=== PATIENT | male | born 1985 | race Caucasian/White ===

== ENCOUNTER 2016-05-20 11:22 | Emergency (ER) | payer OTHER ==
[2016-05-20 11:40] VITALS: BP 117/80; PULSE 78; TEMP 98.2; BMI 26.5
--- NOTE | 2016-05-20 11:41 | PDOC ---
History of Present Illness - General Chief Complaint: Injury Stated Complaint: LEFT NECK/SHOULDERPAIN S/P INJURY AT WORK Time Seen by Provider: 05/20/16 11:38 - History of Present Illness Initial Comments: 05/20/16 12:05 Chief complaint: Pain in the left upper back and posterior shoulder History of present illness: This morning the patient was pulling a heavy cart at work, felt a "snap" in his upper back posteriorly and posterior shoulder, with subsequent pain in this area, radiating down the inner aspect of his arm, accompanied by numbness and paresthesias along the C6-C7 distribution. Review of systems: The patient did not fall. He has no visual or other focal neurologic symptoms or unsteadiness of gait. He has no anterior chest pain, shortness of breath, abdominal pain, nausea, vomiting, diarrhea. Remainder systems reviewed and found to be negative Past medical history: Patient denies any serious medical or surgical or orthopedic problems in the past. Social history: Denies any significant use of tobacco alcohol or nonprescription drugs. Fully active and without disability Family history: Reviewed and noncontributory including early coronary artery disease, orthopedic disease, neurologic disease, cancer, or metabolic disease including diabetes Physical exam: Alert and oriented 3, well-developed well-nourished, no acute distress, cooperative Afebrile, vital signs normal Head atraumatic. PERRLA, fundi benign, ENT clear There is tenderness over the left lateral neck musculature, primarily posteriorly. There is no point tenderness or deformity of the vertebral bodies of the cervical spine. There is subjective mild numbness and paresthesias along the C6 and C7 distribution on the left, although there is no demonstrable sensory or motor deficit to the arm. There is no axillary deformity or tenderness. There is no limited range of motion of the arm or shoulder Impression: Cervical strain with radiculopathy versus brachial plexus pain. Rule out cervical spine injury/subluxation Plan: X-rays and further orthopedic management depending on results. Rest, anti- inflammatory, and muscle relaxant. Past History - Past Medical History Allergies/Adverse Reactions: Allergies Allergy/AdvReac Type Severity Reaction Status Date / Time ibuprofen [From Motrin] Allergy Mild Verified 05/20/16 11:28 Home Medications: Ambulatory Orders Cyclobenzaprine HCl [Flexeril] 10 mg PO TID #14 tablet 05/20/16 Oxycodone HCl/Acetaminophen [Percocet 5-325 mg Tablet] 1 - 2 tab PO Q4H PRN #15 tablet MDD 8 05/20/16 Other medical history: pt denies - Surgical History Abdominal Surgery: Yes (double hernia at the age of 14 years.) - Psycho/Social/Smoking Cessation Hx Anxiety: No Suicidal Ideation: No Smoking History: Never smoked Information on smoking cessation initiated: No Hx Alcohol Use: Yes (occasional) Drug/Substance Use Hx: No Substance Use Type: None *Physical Exam - Vital Signs Last Vital Signs Temp Pulse Resp BP Pulse Ox 98.2 F 78 18 117/80 96 05/20/16 11:23 05/20/16 11:23 05/20/16 11:23 05/20/16 11:23 05/20/16 11:23 Medical Decision Making - Medical Decision Making 05/20/16 13:50 X-ray of the cervical spine showed no acute fracture or dislocation. There appeared to be mild straightening due to muscle spasm, and mild degenerative changes The patient's arm was placed in a sling to avoid traction on the nerve bundle. Rest ice Percocet and Flexeril or recommended. Anti-inflammatories were not prescribed due to ALLERGY to ibuprofen which she described as "closing of his throat" The patient was kept out of work, strongly advised to avoid stress on the arm and shoulder, including lifting, carrying, or exercising. It was recommended he follow-up with an marketing analytics specialist for further examination before returning to normal activities. *DC/Admit/Observation/Transfer Diagnosis at time of Disposition: Radiculopathy affecting upper extremity - Discharge Dispostion Disposition: HOME Condition at time of disposition: Stable Admit: No - Prescriptions Prescriptions: Cyclobenzaprine HCl [Flexeril] 10 mg PO TID #14 tablet Oxycodone HCl/Acetaminophen [Percocet 5-325 mg Tablet] 1 - 2 tab PO Q4H PRN #15 tablet MDD 8 PRN Reason: Pain - Referrals Referrals: Amadeo Castaneda MD [Staff Physician] - 3 days - Patient Instructions Printed Discharge Instructions: DI for Cervical Radiculopathy, How to Use a Sling - Post Discharge Activity Work/School Note: Back to Work
== END 2016-05-20 13:02 | disposition home or self-care (01) ==
LOC: FER 11:22
DX: M54.10 Radiculopathy, site unspecified (principal)
CPT/HCPCS: 72050-TC; 99282-25

== ENCOUNTER 2017-12-12 20:50 | Emergency (ER) | payer OTHER ==
--- NOTE | 2017-12-12 20:57 | PDOC ---
History of Present Illness - General History Source: Patient Exam Limitations: No Limitations - History of Present Illness Initial Comments: 12/12/17 21:33 The patient is a 32 year old male, with no significant PMH, who presents to the emergency department complaining of abdomen pain for the past 3 days. The patient states constant non radiating pain is located to the RUQ and epigastric area that has progressively worsened today with a severity of 8/10. He reports he endorses associated symptoms of nausea, decrease appetite, cold sweats and nonbloody and nonbilious diarrhea for the past 2 days. The patient also notes pain is exacerbated with movement. The patient denies any recent travels, chest pain, shortness of breath, headache and dizziness. Denies fever, chills, nausea, vomit and constipation. Denies dysuria, frequency, urgency and hematuria. Allergies: ibuprofen Past surgical history: :Double hernia at the age of 14 years Social history: Drinks alcohol and smoke marijuana. PCP: Becka Champagne <Wan Harper - Last Filed: 12/12/17 21:44> <Berta Sharma - Last Filed: 12/13/17 00:29> - General Chief Complaint: Pain Stated Complaint: ABD PAIN Time Seen by Provider: 12/12/17 20:53 Past History <Wan Harper - Last Filed: 12/12/17 21:44> - Past Medical History COPD: No - Surgical History Abdominal Surgery: Yes (double hernia at the age of 14 years.) - Suicide/Smoking/Psychosocial Hx Smoking History: Never smoked Have you smoked in the past 12 months: No Hx Alcohol Use: No (social) Drug/Substance Use Hx: No Substance Use Type: None <Berta Sharma - Last Filed: 12/13/17 00:29> - Past Medical History Allergies/Adverse Reactions: Allergies Allergy/AdvReac Type Severity Reaction Status Date / Time ibuprofen [From Motrin] Allergy Mild Difficulty Verified 12/12/17 20:52 Breathing Home Medications: Ambulatory Orders Hyoscyamine Odt [Levsin Odt -] 0.125 mg PO BID #12 tab.rapdis 12/12/17 Ondansetron [Zofran Odt -] 4 mg SL TID PRN #12 od.tablet 12/12/17 Pantoprazole Sodium [Protonix -] 40 mg PO DAILY #20 tablet.ec 12/12/17 Review of Systems - Review of Systems Able to Perform ROS?: Yes Comments:: 12/12/17 21:33 GENERAL/CONSTITUTIONAL: No fever or chills. No weakness. HEAD, EYES, EARS, NOSE AND THROAT: No change in vision. No ear pain or discharge. No sore throat. CARDIOVASCULAR: No chest pain or shortness of breath. RESPIRATORY: No cough, wheezing, or hemoptysis. GASTROINTESTINAL:+diffuse abdomen pain, +nausea.No vomiting, diarrhea or constipation. GENITOURINARY: No dysuria, frequency, or change in urination. MUSCULOSKELETAL: No joint or muscle swelling or pain. No neck or back pain. SKIN: No rash NEUROLOGIC: No headache, vertigo, loss of consciousness, or change in strength/ sensation. ENDOCRINE: No increased thirst. No abnormal weight change. HEMATOLOGIC/LYMPHATIC: No anemia, easy bleeding, or history of blood clots. ALLERGIC/IMMUNOLOGIC: No hives or skin allergy. <Wan Harper - Last Filed: 12/12/17 21:44> *Physical Exam - Vital Signs Last Vital Signs Temp Pulse Resp BP Pulse Ox 98.4 F 68 18 148/94 100 12/12/17 20:50 12/12/17 20:50 12/12/17 20:50 12/12/17 20:50 12/12/17 20:50 - Physical Exam Comments: 12/12/17 21:38 GENERAL: Awake, alert, and fully oriented, in no acute distress HEAD: No signs of trauma EYES: PERRLA, EOMI, sclera anicteric, conjunctiva clear ENT: +Dry mucous membrane. Auricles normal inspection, hearing grossly normal, nares patent, oropharynx clear without exudates. NECK: Normal ROM, supple, no lymphadenopathy, JVD, or masses LUNGS: Breath sounds equal, clear to auscultation bilaterally. No wheezes, and no crackles HEART: Regular rate and rhythm, normal S1 and S2, no murmurs, rubs or gallops ABDOMEN: + Moderate epigastric and RLQ tenderness with some involuntary guarding but no rebound. No [place] signs. No masses, hernia , organomegaly. Normal active bowel sounds. EXTREMITIES: Normal range of motion, no edema. No clubbing or cyanosis. No cords, erythema, or tenderness NEUROLOGICAL: Cranial nerves II through XII grossly intact. Normal speech, normal gait SKIN: Warm, Dry, normal turgor, no rashes or lesions noted. <Wan Harper - Last Filed: 12/12/17 21:44> - Vital Signs Last Vital Signs Temp Pulse Resp BP Pulse Ox 98.4 F 68 18 148/94 100 12/12/17 20:50 12/12/17 20:50 12/12/17 20:50 12/12/17 20:50 12/12/17 20:50 <Berta Sharma - Last Filed: 12/13/17 00:29> ED Treatment Course - LABORATORY CBC & Chemistry Diagram: 12/12/17 21:10 12/12/17 21:10 - ADDITIONAL ORDERS Additional order review: Laboratory Results 12/12/17 21:10 Sodium 134 L Potassium 3.6 Chloride 98 Carbon Dioxide 25 Anion Gap 11 BUN 14 Creatinine 1.1 Creat Clearance w eGFR > 60 Random Glucose 108 H Calcium 9.8 Total Bilirubin 0.9 AST 22 ALT 23 Alkaline Phosphatase 40 Total Protein 8.4 H Albumin 5.0 12/12/17 21:10 RBC 4.99 MCV 91.3 MCHC 33.6 RDW 11.5 L MPV 7.6 Neutrophils % 75.9 Lymphocytes % 14.5 Monocytes % 8.7 Eosinophils % 0.8 Basophils % 0.1 - Medications Given in the ED: ED Medications Discontinued Medications Generic Name Dose Route Start Last Admin Trade Name Freq PRN Reason Stop Dose Admin Hydromorphone HCl 1 mg 12/12/17 21:11 12/12/17 21:17 Dilaudid Injection - IVPUSH 12/12/17 21:12 1 mg ONCE ONE Administration <Wan Harper - Last Filed: 12/12/17 21:44> - LABORATORY CBC & Chemistry Diagram: 12/12/17 21:10 12/12/17 21:10 <Berta Sharma - Last Filed: 12/13/17 00:29> Progress Note - Progress Note Progress Note: Documentation has been prepared under my direction and personally reviewed by me in its entirety. I attest that this documented accurately reflects all work, treatment, procedures and medical decision making performed by me. <Berta Sharma - Last Filed: 12/13/17 00:29> Medical Decision Making - Medical Decision Making As noted above, this otherwise healthy 32-year-old male presents with abdominal pain, primarily epigastric/periumbilical/right lower quadrant. He has had associated nausea without vomiting. No fever although he says he has had some chills. He has developed watery diarrhea over the last 24 hours. Patient states that primary pain is in the epigastrium; he has no history of peptic ulcer disease or gastritis and denies recent alcohol use/excessive medications (patient is ALLERGIC to NSAIDs and does not take any medications on a regular basis). Exam as noted Patient received a total of 2 mg Dilaudid IV for his severe abdominal cramping pain, 20 mg Pepcid IV as well as 40 mg Protonix IV. He also received Zofran 4 mg IV for ongoing nausea. Laboratory evaluation (CBC/chemistry profile/lipase) are all essentially normal. Abdominal/pelvic CT performed to evaluate for acute appendicitis/perforated peptic ulcer disease/colitis. CT is essentially normal without evidence of appendicitis/diverticulitis/colitis /free air/pancreatitis. Clinical presentation consistent with gastroenteritis with patient's nausea and diarrhea. However, because patient has significant epigastric pain, there is possibility that he there is developing also peptic ulcer disease or acute gastritis. Patient's family is followed for gastroenterology concerns by . Prescriptions for Protonix 40 mg daily/Levsin ODT 0.125 mg 2 times a day/Zofran ODT 4 mg 3 times a day were given to the patient. Meanwhile, he should maintain light diet and drink plenty of clear liquids as tolerated. He should plan to follow-up with Dr. Powell in the near future: Office should be called at the start of the next business day. If patient has persistent vomiting, worsening pain, fever, he should return to the emergency room <Berta Sharma - Last Filed: 12/13/17 00:29> *DC/Admit/Observation/Transfer - Attestations Scribe Attestion: 12/12/17 21:34 Documentation prepared by Wan Harper, acting as certified medical aide for Berta Sharma MD. <Wan Harper - Last Filed: 12/12/17 21:44> <Berta Sharma - Last Filed: 12/13/17 00:29> Diagnosis at time of Disposition: Epigastric abdominal pain - Discharge Dispostion Disposition: HOME Condition at time of disposition: Stable - Prescriptions Prescriptions: Hyoscyamine Odt [Levsin Odt -] 0.125 mg PO BID #12 tab.rapdis Ondansetron [Zofran Odt -] 4 mg SL TID PRN #12 od.tablet PRN Reason: Nausea Pantoprazole Sodium [Protonix -] 40 mg PO DAILY #20 tablet.ec - Referrals Referrals: Becka Champagne [Primary Care Provider] - Amador Powell MD [Staff Physician] - 3 days - Patient Instructions Printed Discharge Instructions: DI for Epigastric Pain Additional Instructions: Light diet; drink plenty of clear liquids Protonix 40 mg daily Zofran ODT 4 mg up to 3 times a day as needed for nausea Levsin ODT 0.125mg up to twice a day as needed for abdominal cramping Return to ER if you have persistent vomiting, severe pain or fever Follow-up with within the next 3-4 days - Post Discharge Activity
[2017-12-12] MEDS ORDERED: SODIUM CHLORIDE 1,000 ML IV STA (21:10)
[2017-12-12 21:11] VITALS: TEMP 98.4; BMI 27.2
[2017-12-12] MEDS ORDERED: HYDROmorphone HCL CARPU-JECT 1 MG/1 ML DISP.SYRIN IVPUSH ONE ×2 (21:11→22:35)
[2017-12-12] MEDS ORDERED: HYDROmorphone HCL CARPU-JECT 1 MG/1 ML DISP.SYRIN ONE ×2 (21:12→22:36)
[2017-12-12 21:22] LABS: BASO % 0.1 % (0-2.0); EOS % 0.8 % (0-4.5); HEMATOCRIT 45.6 % (35.4-49); HEMOGLOBIN 15.3 GM/dl (11.7-16.9); LYMPH % 14.5 % (8-40); MCH 30.7 pg (25.7-33.7); MCHC 33.6 g/dl (32.0-35.9); MEAN CELL VOLUME 91.3 fl (80-96); MEAN PLT VOLUME 7.6 fl (7.5-11.1); MONO % 8.7 % (3.8-10.2); NEUT % 75.9 % (42.8-82.8); PLATELET COUNT 266 K/MM3 (134-434); RBC 4.99 M/mm3 (4.00-5.60); RDW 11.5 % (11.9-15.9); WHITE BLOOD COUNT 9.6 K/mm3 (4.0-10.8)
[2017-12-12 21:31] LABS: ALK PHOS 40 U/L (32-92); ANION GAP 11 MMOL/L (8-16); BILIRUBIN,TOTAL 0.9 mg/dl (0.2-1.0); BLOOD UREA NITROGEN 14 mg/dl (7-18); CALCIUM 9.8 mg/dl (8.4-10.2); CHLORIDE 98 mmol/L (98-107); CO2 25 mmol/L (22-28); CREATININE 1.1 mg/dl (0.6-1.3); GLUCOSE,RANDOM 108 mg/dl (74-106); POTASSIUM 3.6 mmol/L (3.5-5.1); SGOT/AST 22 U/L (10-42); SGPT/ALT 23 U/L (10-40); SODIUM 134 mmol/L (136-145); TOT PROT 8.4 g/dl (6.4-8.3)
[2017-12-12] MEDS ORDERED: FAMOTIDINE 20 MG/50 ML IVPB 20 MG/50 ML MG IVPB ONE ×2 (21:36→21:43)
[2017-12-12 22:21] LABS: LIPASE 103 U/L (73-393)
[2017-12-12] MEDS ORDERED: PANTOPRAZOLE SODIUM 40 MG VIAL ONE (22:36)
[2017-12-12] MEDS ORDERED: PANTOPRAZOLE SODIUM 40 MG VIAL IVPB ONE (22:36)
[2017-12-12 22:42] VITALS: BP 118/75; PULSE 65
[2017-12-12] MEDS ORDERED: SODIUM CHLORIDE 1,000 ML IV ONE (22:50)
[2017-12-12] MEDS ORDERED: ONDANSETRON 4 MG/2 ML VIAL IVPUSH ONE (23:01)
[2017-12-12] MEDS ORDERED: ONDANSETRON 4 MG/2 ML VIAL ONE (23:01)
== END 2017-12-12 23:55 | disposition home or self-care (01) ==
LOC: FER 20:50
PROC: 3E03329 Introduction of Other Anti-infective into Peripheral Vein, Percutaneous Approach (ICD-10-PCS; principal; 2017-12-12)
PROC: 3E033GC Introduction of Other Therapeutic Substance into Peripheral Vein, Percutaneous Approach (ICD-10-PCS; 2017-12-12)
PROC: 3E0337Z Introduction of Electrolytic and Water Balance Substance into Peripheral Vein, Percutaneous Approach (ICD-10-PCS; 2017-12-12)
DX: R10.13 Epigastric pain (principal)
CPT/HCPCS: 36415; 74176-TC; 74177-TC; 80053; 83690; 85025; 99283-25; J7030